=== PATIENT | male | born 1965 | race Caucasian/White ===

== ENCOUNTER → 2018-07-11 | Outpatient (CLI) | payer OTHER, SELFPAY ==
--- NOTE | 2018-07-18 09:22 | SLEEPHOME ---
DATE OF PROCEDURE: 07/11/2018 ORDERED BY: Dr. Rahman Diagnostic home sleep testing was performed due to concern for the obstructive sleep apnea syndrome. For testing, a nocturnal T3 respiratory monitoring device was used. Continuous record was made of pulse, oxygen saturation, airflow, chest and abdominal strain and body position. 9 hours and 59 minutes of data were reviewed. There were 8 hours of 58 minutes marked as time in bed. During the interval marked time in bed, there were 49 respiratory events identified of 10 seconds in duration or greater for a respiratory event index of 5.5. The events were obstructive, central and mixed. 23 central and mixed apneas were scored. Baseline pulse rate was 69 beats per minute. Pulse rate ranged from 21 to 195. Baseline saturation 93%. Saturations fell as low as 81%. Testing was performed in both supine and nonsupine positions. Respiratory events were not exclusive to any posture. IMPRESSION: Abnormal home sleep testing with repetitive respiratory events and oxygen desaturations to 81% with a respiratory event index of 5.5 is consistent with the obstructive sleep apnea syndrome. RECOMMENDATIONS: The patient should be encouraged to undergo formal sleep evaluation and in laboratory pressure titration.
== END ==
LOC: M SLEEP HO 11:07
PROVIDERS: ATTEND Internal Medicine Cardiovascular Disease
DX: R40.0 Somnolence (principal)

== ENCOUNTER → 2018-10-04 | Outpatient (CLI) | payer MEDICAID, OTHER ==
--- NOTE | 2018-10-04 14:33 | PFTRPT ---
Height: 68.00 Inches Weight: 264.00 Lbs BSA: 2.30 Diagnosis: R06.00 DATE OF PROCEDURE: 10/04/2018 ORDERED BY: Nica Tony Spirometry: Pre and post bronchodilator study of excellent technical quality. Forced vital capacity reduced. FEV1 out of proportion. Obstructive index is, therefore, reduced. Flow Volume Loop: Expiratory limb of the flow volume loop consistent with very significant flow rate limitation. Favorable bronchodilator response is identified. Lung Volumes: Total lung capacity markedly elevated. Residual volume consistent with significant air trapping. Diffusing Capacity: Diffusing capacity is reduced but does correct for alveolar volume. Hemoglobin: Hemoglobin acceptable at 12.3. Airway Mechanics: Airway resistance markedly elevated with concomitant decrease in airway conductance. IMPRESSION: Severe obstructive ventilatory impairment with underlying air trapping. Favorable bronchodilator response. MTDD
--- NOTE | 2018-10-04 15:20 | REP ---
Clinical: Dyspnea . Comparison: None . Technique: PA and lateral. Findings: The mediastinum and cardiac silhouette are normal. The lung king demonstrates subtle chronic-appearing perihilar and lower lobe markings, but atelectasis cannot be excluded. No discrete focal consolidation. No effusion. No pneumothorax. The skeletal structures are intact and normal. Impression: 1. Chronic-appearing perihilar and lower lobe markings. No prior examinations for comparison. Subtle scattered atelectasis cannot be excluded. 2. No focal consolidation or effusion. Electronically Signed by Pavan Jimenez MD 10/04/2018 03:11 P
== END ==
LOC: M CARPUL 13:43
PROVIDERS: ATTEND Nurse Practitioner Family
DX: R06.00 Dyspnea, unspecified (principal)

== ENCOUNTER → 2020-12-01 | Outpatient (REF) | payer OTHER ==
[2020-12-01 19:47] LABS: MALB URINE SIEMENS 22.7 MG/L
== END ==
LOC: M LAB REF 17:19
PROVIDERS: ATTEND Nurse Practitioner Family
DX: E11.65 Type 2 diabetes mellitus with hyperglycemia (principal)